=== PATIENT | female | born 1965 | race African-American/Black ===

== ENCOUNTER 2020-11-28 17:29 | Emergency (ER) | payer SELFPAY ==
[2020-11-28] MEDS ORDERED: IBUPROFEN 200 MG TAB PO ONE (20:36)
[2020-11-28] MEDS ORDERED: IBUPROFEN 400 MG TAB ONE (20:36)
--- NOTE | 2020-11-28 20:41 | ER ---
Nurse's Notes [facility] Name: Dottie Neves Age: 55 yrs Sex: Female : 1965 Arrival Date: 11/28/2020 Time: 17:30 Bed 2 Private MD: Diagnosis: Fall (on)(from) sidewalk curb;Pain in left knee;Abrasion, left knee Presentation: 11/28 17:35 Chief complaint: Patient states: Tripped on carpet 10 min ROUGHER FOR CEMENT. Fell onto L knee. Pain ll1 and abrasion noted to L knee. No head injury or LOC. Coronavirus screen: Client denies travel out of the [place] in the last 14 days. At this time, the client does not indicate any symptoms associated with coronavirus-19. Ebola Screen: Patient denies travel to an Ebola-affected area in the 21 days before illness onset. Initial Sepsis Screen: Does the patient meet any 2 criteria? No. Patient's initial sepsis screen is negative. Does the patient have a suspected source of infection? Yes: Skin breakdown/wound. Risk Assessment: Do you want to hurt yourself or someone else? Patient reports no desire to harm self or others. Onset of symptoms was November 28, 2020. 17:35 Method Of Arrival: EMS ll1 17:35 Acuity: NIKITA 4 ll1 Historical: - Allergies: 17:34 No Known Allergies; ll1 - PMHx: 17:34 None; ll1 - PSHx: 17:34 ; wristsx; ll1 - Immunization history:: Flu vaccine is not up to date. - Social history:: Smoking status: Patient denies any tobacco usage or history of. - Family history:: not pertinent. Screenin:00 Abuse screen: Denies threats or abuse. Denies injuries from another. Nutritional wh screening: No deficits noted. Tuberculosis screening: No symptoms or risk factors identified. Fall Risk Fall in past 12 months (25 points). Assessment: 19:55 General: Appears in no apparent distress. Behavior is calm, cooperative, appropriate wh for age. Pain: Complains of pain in left knee. Neuro: Level of Consciousness is awake, alert, obeys commands, Oriented to person, place, time, situation, Appropriate for age. Cardiovascular: Capillary refill < 3 seconds. Respiratory: Airway is patent Respiratory effort is even, unlabored, Respiratory pattern is regular, symmetrical. GI: Abdomen is non-distended. : No signs and/or symptoms were reported regarding the genitourinary system. EENT: No signs and/or symptoms were reported regarding the EENT system. Derm: Skin is intact, is healthy with good turgor, Skin is pink, warm \T\ dry. normal. Musculoskeletal: Circulation, motion, and sensation intact. 20:56 Reassessment: Patient appears in no apparent distress at this time. No changes from previously documented assessment. Patient and/or family updated on plan of care and expected duration. Pain level reassessed. Patient is alert, oriented x 3, equal unlabored respirations, skin warm/dry/pink. Vital Signs: 17:35 BP 106 / 57; Pulse 63; Resp 17; Temp 97.9; Pulse Ox 100% ; Weight 79.38 kg; Height 5 ll1 ft. 2 in. (157.48 cm); Pain 10/10; 21:00 BP 110 / 80; Pulse 70; Resp 18; Temp 98; Pulse Ox 100% on R/A; mg2 17:35 Body Mass Index 32.01 (79.38 kg, 157.48 cm) ll1 ED Course: 17:30 Patient arrived in ED. as 17:34 Arm band placed on. ll1 17:36 Triage completed. ll1 19:50 Hari Mcmahon MD is Attending Physician. [facility] 19:56 Sha Obrien, IDALIA is Primary Nurse. mg2 20:00 Patient has correct armband on for positive identification. Bed in low position. Call light in reach. Side rails up X 1. Pulse ox on. NIBP on. 20:40 Wesley Archer MD is Referral Physician. stephanie 20:44 Knee Left 3 View XRAY In Process Unspecified. EDMS 20:59 No provider procedures requiring assistance completed. Patient did not have IV access mg2 during this emergency room visit. Knee immobilizer applied on left knee. 20:59 Wound care: to abrasion, located on left knee was cleaned with ice pack applied. mg2 Patient tolerated well. Administered Medications: 20:26 Drug: Motrin 600 mg Route: PO; 20:43 Follow up: Response: No adverse reaction; Pain is decreased 20:35 Not Given (Patient Refused): Tetanus-Diphtheria Toxoid Adult 0.5 ml IM once wh Outcome: 20:40 Discharge ordered by . stephanie 21:00 Discharged to home via wheelchair. mg2 21:00 Condition: stable 21:00 Discharge instructions given to patient, Instructed on discharge instructions, medication usage, Demonstrated understanding of instructions, follow-up care, medications. 21:00 Patient left the ED. mg2 Signatures: Dispatcher [employer] EDTX Hari Mcmahon MD MD cha Martinez, Amelia as Habalo, Winsy, RN RN Sha Obrien RN RN [facility] Edy Reveles RN RN ll1
--- NOTE | 2020-11-28 20:42 | EDPHYS ---
Physician Documentation [facility] Name: Dottie Neves Age: 55 yrs Sex: Female : 1965 Arrival Date: 11/28/2020 Time: 17:30 Bed 2 Private MD: ED Physician Hari Mcmahon HPI: 11/28 19:59 This 55 yrs old Black Female presents to ER via EMS with complaints of Fall Injury. stephanie 19:59 Details of fall: The patient fell from an upright position, while walking. Onset: The stephanie symptoms/episode began/occurred just prior to arrival. Associated injuries: The patient sustained left knee. Severity of symptoms: At their worst the symptoms were mild, in the emergency department the symptoms are unchanged. The patient has not experienced similar symptoms in the past. Historical: - Allergies: 17:34 No Known Allergies; ll1 - PMHx: 17:34 None; ll1 - PSHx: 17:34 ; wristsx; ll1 - Immunization history:: Flu vaccine is not up to date. - Social history:: Smoking status: Patient denies any tobacco usage or history of. - Family history:: not pertinent. ROS: 19:59 Constitutional: Negative for fever, chills, and weight loss, Eyes: Negative for injury, stephanie pain, redness, and discharge, ENT: Negative for injury, pain, and discharge, Neck: Negative for injury, pain, and swelling, Cardiovascular: Negative for chest pain, palpitations, and edema, Respiratory: Negative for shortness of breath, cough, wheezing, and pleuritic chest pain, Abdomen/GI: Negative for abdominal pain, nausea, vomiting, diarrhea, and constipation, Back: Negative for injury and pain, : Negative for injury, bleeding, discharge, and swelling, Skin: Negative for injury, rash, and discoloration, Neuro: Negative for headache, weakness, numbness, tingling, and seizure, Psych: Negative for depression, anxiety, suicide ideation, homicidal ideation, and hallucinations, Allergy/Immunology: Negative for hives, rash, and allergies, Endocrine: Negative for neck swelling, polydipsia, polyuria, polyphagia, and marked weight changes, Hematologic/Lymphatic: Negative for swollen nodes, abnormal bleeding, and unusual bruising. 19:59 MS/extremity: Positive for abrasion, contusion, decreased range of motion, pain, of the left knee. Exam: 19:59 Constitutional: This is a well developed, well nourished patient who is awake, alert, stephanie and in no acute distress. Head/Face: Normocephalic, atraumatic. Eyes: Pupils equal round and reactive to light, extra-ocular motions intact. Lids and lashes normal. Conjunctiva and sclera are non-icteric and not injected. Cornea within normal limits. Periorbital areas with no swelling, redness, or edema. ENT: Nares patent. No nasal discharge, no septal abnormalities noted. Tympanic membranes are normal and external auditory canals are clear. Oropharynx with no redness, swelling, or masses, exudates, or evidence of obstruction, uvula midline. Mucous membranes moist. Neck: Trachea midline, no thyromegaly or masses palpated, and no cervical lymphadenopathy. Supple, full range of motion without nuchal rigidity, or vertebral point tenderness. No Meningismus. Chest/axilla: Normal chest wall appearance and motion. Nontender with no deformity. No lesions are appreciated. Cardiovascular: Regular rate and rhythm with a normal S1 and S2. No gallops, murmurs, or rubs. Normal PMI, no JVD. No pulse deficits. Respiratory: Lungs have equal breath sounds bilaterally, clear to auscultation and percussion. No rales, rhonchi or wheezes noted. No increased work of breathing, no retractions or nasal flaring. Abdomen/GI: Soft, non-tender, with normal bowel sounds. No distension or tympany. No guarding or rebound. No evidence of tenderness throughout. Back: No spinal tenderness. No costovertebral tenderness. Full range of motion. Female : Normal external genitalia. Skin: Warm, dry with normal turgor. Normal color with no rashes, no lesions, and no evidence of cellulitis. Neuro: Awake and alert, GCS 15, oriented to person, place, time, and situation. Cranial nerves II-XII grossly intact. Motor strength 5/5 in all extremities. Sensory grossly intact. Cerebellar exam normal. Normal gait. Psych: Awake, alert, with orientation to person, place and time. Behavior, mood, and affect are within normal limits. 19:59 Musculoskeletal/extremity: ROM: limited active range of motion due to pain, limited passive range of motion due to pain, Circulation is intact in all extremities. Sensation intact. Compartment Syndrome exam of affected extremity: is normal. Joints: All joints are normal except painful range of motion, swelling, tenderness, DVT Exam: negative Homans' sign noted on exam, no appreciated bluish discoloration, no erythema, no increased warmth, pain, swelling, tenderness. Vital Signs: 17:35 BP 106 / 57; Pulse 63; Resp 17; Temp 97.9; Pulse Ox 100% ; Weight 79.38 kg; Height 5 ll1 ft. 2 in. (157.48 cm); Pain 10/10; 21:00 BP 110 / 80; Pulse 70; Resp 18; Temp 98; Pulse Ox 100% on R/A; mg2 17:35 Body Mass Index 32.01 (79.38 kg, 157.48 cm) ll1 MDM: 19:50 Patient medically screened. stephanie 19:57 Patient medically screened. [facility] 20:02 Differential diagnosis: contusion, fracture, laceration, sprain, strain. Data reviewed: [facility] vital signs, nurses notes, radiologic studies, plain films. Data interpreted: surgical coder: rate is 63 beats/min, rhythm is regular, Pulse oximetry: on room air is 100 %. Test interpretation: by ED physician or midlevel provider: plain radiologic studies. Counseling: I had a detailed discussion with the patient and/or guardian regarding: the historical points, exam findings, and any diagnostic results supporting the discharge/admit diagnosis, radiology results, the need for outpatient follow up, for definitive care, a family practitioner, a orthopedic surgeon. 11/28 19:59 Order name: Knee Left 3 View XRAY [facility] 11/28 19:59 Order name: Wound dressing; Complete Time: 20:43 [facility] 11/28 19:59 Order name: Ice pack; Complete Time: 20:27 [facility] 11/28 20:04 Order name: Knee Immobilizer; Complete Time: 20:43 [facility] Administered Medications: 20:26 Drug: Motrin 600 mg Route: PO; 20:43 Follow up: Response: No adverse reaction; Pain is decreased 20:35 Not Given (Patient Refused): Tetanus-Diphtheria Toxoid Adult 0.5 ml IM once wh Disposition: 11/28/20 20:40 Discharged to Home. Impression: Fall (on)(from) sidewalk curb, Pain in left knee, Abrasion, left knee. - Condition is Stable. - Discharge Instructions: Joint Pain, How to Use a Knee Brace, Musculoskeletal Pain, Knee Pain, Cryotherapy, [id number], Cryotherapy, Knee Pain, [id number], Joint Pain, [id number]. - Prescriptions for Ibuprofen 600 mg Oral Tablet - take 1 tablet by ORAL route every 8 hours As needed take with food; 21 tablet. - Medication Reconciliation Form, Thank You Letter, Antibiotic Education, Prescription Opioid Use, Work release form form. - Follow up: Private Physician; When: 2 - 3 days; Reason: Recheck today's complaints, Continuance of care, Re-evaluation by your physician. Follow up: Dr. Wesley Archer; When: 2 - 3 days; Reason: Recheck today's complaints, Re-evaluation by your physician. - Problem is new. - Symptoms have improved. Signatures: Dispatcher [employer] EDMS Hari Mcmahon MD MD cha Habalo, Winsy, RN RN Sha Obrien RN RN [facility] Edy Reveles RN RN ll1 Corrections: (The following items were deleted from the chart) 21:00 20:40 11/28/2020 20:40 Discharged to Home. Impression: Fall (on)(from) sidewalk curb; mg2 Pain in left knee; Abrasion, left knee. Condition is Stable. Discharge Instructions: Joint Pain, How to Use a Knee Brace, Musculoskeletal Pain, Knee Pain, Cryotherapy, [id number], Cryotherapy, Knee Pain, [id number], Joint Pain, [id number]. Prescriptions for Ibuprofen 600 mg Oral Tablet - take 1 tablet by ORAL route every 8 hours As needed take with food; 21 tablet. and Forms are Medication Reconciliation Form, Thank You Letter, Antibiotic Education, Prescription Opioid Use. Follow up: Private Physician; When: 2 - 3 days; Reason: Recheck today's complaints, Continuance of care, Re-evaluation by your physician. Follow up: Dr. Wesley Archer; When: 2 - 3 days; Reason: Recheck today's complaints, Re-evaluation by your physician. Problem is new. Symptoms have improved. stephanie
--- NOTE | 2020-11-28 21:15 | RAD REPORT ---
EXAM DESCRIPTION: RAD - Knee Left 3 View - 11/28/2020 8:44 pm CLINICAL HISTORY: PAIN COMPARISON: No comparisons FINDINGS: No acute fracture or dislocation seen. No joint effusion evident.
[2020-11-28 22:32] VITALS: O2SAT 100
[2020-11-28 22:33] VITALS: BP 110/80; TEMP 98
== END 2020-11-28 21:00 | disposition home or self-care (01) ==
LOC: ER 17:29
DX: S80.212A Abrasion, left knee, initial encounter (principal); W10.1XXA Fall (on)(from) sidewalk curb, initial encounter; Y93.01 Activity, walking, marching and hiking; Y92.9 Unspecified place or not applicable
CPT/HCPCS: 99284